=== PATIENT | male | born 1990 | race Caucasian/White ===

== ENCOUNTER 2017-08-13 03:18 | Emergency (ER) | payer OTHER ==
[2017-08-13 03:31] VITALS: BP 157/93; PULSE 68; RESP 16; TEMP 97.8; O2SAT 100
[2017-08-13] MEDS ORDERED: Oxycodone/Acetaminophen 5/325 mg Tab PO ONE (03:48)
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
[2017-08-13] MEDS ORDERED: Oxycodone/Acetaminophen 5/325 mg Tab ONE (04:08)
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
== END 2017-08-13 06:19 | disposition home or self-care (01) ==
LOC: H.ER 03:18
DX: S69.92XA Unspecified injury of left wrist, hand and finger(s), initial encounter (principal); V43.52XA Car driver injured in collision with other type car in traffic accident, initial encounter; Y93.9 Activity, unspecified

== ENCOUNTER 2017-08-15 00:22 | Emergency (ER) | payer OTHER ==
[2017-08-15 00:31] VITALS: BP 146/99; PULSE 82; RESP 16; TEMP 99; O2SAT 100
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
--- NOTE | 2017-08-15 09:04 | RAD ---
PROCEDURE: Cervical Spine Radiographs. HISTORY: Pain. COMPARISON: None. FINDINGS: BONES: Alignment maintained. No fracture. Dens Intact. DISC SPACES: Normal. SOFT TISSUES: Normal. No prevertebral soft tissue swelling. OTHER FINDINGS: None. IMPRESSION: Normal cervical spine radiographs
--- NOTE | 2017-08-15 09:04 | RAD ---
PROCEDURE: Radiographs of the Lumbar Spine. HISTORY: pain COMPARISON: No prior. FINDINGS: BONES: Normal alignment. No listhesis. No fracture. DISC SPACES: Unremarkable. OTHER FINDINGS: None. IMPRESSION: Unremarkable radiographs of the lumbar spine.
== END 2017-08-15 02:29 | disposition home or self-care (01) ==
LOC: H.ER 00:22
DX: M54.5 Low back pain (principal); M54.2 Cervicalgia; V43.52XA Car driver injured in collision with other type car in traffic accident, initial encounter; Y92.410 Unspecified street and highway as the place of occurrence of the external cause
CPT/HCPCS: 72052; 72114; 96372; 99282; J1885